=== PATIENT | male | born 1940 | race Caucasian/White ===

== ENCOUNTER 2017-11-10 17:26 | Inpatient (IN) ==
[2017-11-11] MEDS ORDERED: Albuterol 2.5 MG/3 ML NEBULIZER IH PRN (13:34)
[2017-11-11] MEDS ORDERED: Naloxone 0.4 MG/ML INJ IVP PRN (13:34)
[2017-11-11] MEDS ORDERED: Nitroglycerin 0.4 MG TAB.SUBL SL PRN (13:34)
[2017-11-11] MEDS: tiZANidine 4 MG TABLET PO SCH ×2 (14:57→19:39)
[2017-11-11] MEDS: Nystatin SUSP 5 ML UD.LIQ PO SCH ×2 (17:13→19:39)
[2017-11-11] MEDS: *HR* Warfarin 1 MG TABLET PO SCH (17:13)
[2017-11-11] MEDS: *HR* HYDROcodone/Acet 5/325 mg TABLET PO PRN (18:08)
[2017-11-11] MEDS: *HR* HYDROmorphone (PF) 1 MG/ML SYRINGE IVP PRN (19:38)
[2017-11-12] MEDS: Ascorbic Acid 500 MG TABLET PO SCH (06:01)
[2017-11-12] MEDS: Ondansetron 4 MG/2 ML VIAL IVP PRN ×2 (06:19→23:48)
[2017-11-12 06:31] LABS: Hematocrit 30.8 % (37.5-50.1); Hemoglobin 10.1 g/dL (12.9-16.9); Mean Corpuscular HGB Conc 32.8 g/dL (31.6-35.5); Mean Corpuscular Hemoglobin 27.7 pg (28.0-33.3); Mean Corpuscular Volume 84.4 fL (83.0-100.0); Mean Platelet Volume 10.2 fL (9.4-12.4); Platelet Count 253 K/mcL (140-400); Red Blood Count 3.65 M/mcL (4.19-5.50); Red Cell Distribution Width 15.4 % (11.5-14.5)
[2017-11-12 06:36] LABS: INR 1.6
[2017-11-12 06:39] LABS: Activated Partial Thrombo Time 30.5 Seconds (26.0-36.0)
[2017-11-12 06:45] LABS: BUN/Creatinine Ratio 17 (6-26); Blood Urea Nitrogen 11 mg/dL (8-26); Calcium 8.7 mg/dL (8.6-10.8); Carbon Dioxide 27 mEq/L (19-29); Chloride 104 mEq/L (98-109); Glucose 100 mg/dL (70-99); Osmolality,Calculated 287 (280-300); Potassium 3.4 mEq/L (3.5-4.5); Sodium 139 mEq/L (136-145); eGFR For African Americans > 60 (> 60); eGFR For Non-African Americans > 60 (> 60)
[2017-11-12 07:44] LABS: Monocytes # 0.5 K/mcL (0.0-1.3); Neutrophils # 5.9 K/mcL (1.6-8.9); Reactive Lymphocytes Present (Not Present)
[2017-11-12 07:48] LABS: Anisocytosis 1+ (Not Present); Platelet Estimate Normal (Normal)
[2017-11-12] MEDS: *HR* HYDROcodone/Acet 5/325 mg TABLET PO PRN ×3 (08:59→23:48)
[2017-11-12] MEDS: amLODIPine 5 MG TABLET PO SCH (09:00)
[2017-11-12] MEDS: Famotidine 20 MG TABLET PO SCH (09:00)
[2017-11-12] MEDS: Magnesium Oxide 400 MG TABLET PO SCH (09:00)
[2017-11-12] MEDS ORDERED: Leptospermum Honey GEL 1 APPL/5 ML MLS TP ONE (09:00)
[2017-11-12] MEDS: Nystatin SUSP 5 ML UD.LIQ PO SCH ×5 (09:00→20:02)
[2017-11-12] MEDS: tiZANidine 4 MG TABLET PO SCH ×3 (09:00→20:02)
--- NOTE | 2017-11-12 15:12 | Internal Med Progress Note ---
Date of Encounter: 11/12/17 Time of Encounter: 15:05 - Assessment and plan (1) Colitis Current Visit: No Status: Resolved Assessment and plan: November 12. Remains clinically resolved. Remain off antibiotics. (2) Anemia Current Visit: No Status: Acute Assessment and plan: November 12. Anemia testing showed iron 15, transferrin saturation 9%, transferrin 119, ferritin 338, B12 344, and folate 7.7. Continue ferrous sulfate with vitamin C. Qualifiers: Anemia type: iron deficiency Iron deficiency anemia type: unspecified iron deficiency Qualified Code(s): D50.9 - Iron deficiency anemia, unspecified (3) Pulmonary embolus Current Visit: No Status: Chronic Assessment and plan: November 12. 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 Continue magnesium supplement and monitor labs. - Subjective Interval history: November 12. He was hospitalized in acute care November 07 after presenting with acute colitis. He was given IV Flagyl and Cipro and colitis symptoms resolved. The WBC and left shift on differential normalized. He was discharged to swing bed for ongoing therapy prior to returning to independent living at home. He has no new complaints. - Constitutional Vitals: Temp Pulse Resp BP Pulse Ox 98.9 F 69 16 149/56 97 11/12/17 06:56 11/12/17 06:56 11/12/17 06:56 11/12/17 06:56 11/12/17 13:06 Exam: His resting comfortably in bed and appears in no acute distress. His affect is bright and cheerful. I reviewed his medications and lab results. Internal Medicine: Result - Labs CBC & Chem 7: 11/12/17 05:53 11/12/17 05:53 Labs: Short CBC 11/12/17 Range/Units 05:53 WBC 8.4 (4.3-11.1) K/mcL Hgb 10.1 L (12.9-16.9) g/dL Hct 30.8 L (37.5-50.1) % Plt Count 253 (140-400) K/mcL Neutrophils # 5.9 (1.6-8.9) K/mcL BMP 11/12/17 05:53 Sodium 139 Potassium 3.4 L Chloride 104 Carbon Dioxide 27 BUN 11 Creatinine 0.64 L Glucose 100 H Calcium 8.7 - ABG Interpretation ABG results: PT/INR, D-dimer PT 17.0 Seconds (9.4-12.1) H 11/12/17 05:53 Consult Discharge Plan - Plan Referrals: Sofi Johansen, RIGGING SUPERVISOR [Primary Care Provider] - 1 week
[2017-11-12] MEDS: *HR* Warfarin 1 MG TABLET PO SCH (17:38)
[2017-11-13] MEDS: *HR* HYDROmorphone (PF) 1 MG/ML SYRINGE IVP PRN (02:10)
[2017-11-13] MEDS: *HR* HYDROcodone/Acet 5/325 mg TABLET PO PRN ×3 (05:48→17:05)
[2017-11-13] MEDS: Ascorbic Acid 500 MG TABLET PO SCH (05:48)
[2017-11-13] MEDS: Famotidine 20 MG TABLET PO SCH (05:51)
[2017-11-13] MEDS: tiZANidine 4 MG TABLET PO SCH ×3 (08:16→20:47)
[2017-11-13] MEDS: amLODIPine 5 MG TABLET PO SCH (08:17)
[2017-11-13] MEDS: Nystatin SUSP 5 ML UD.LIQ PO SCH ×4 (08:17→17:13)
[2017-11-13] MEDS: Magnesium Oxide 400 MG TABLET PO SCH (08:17)
[2017-11-13] MEDS: Ondansetron 4 MG/2 ML VIAL IVP PRN (08:18)
[2017-11-13] MEDS: *HR* Warfarin 1 MG TABLET PO SCH (17:05)
[2017-11-14] MEDS: Ascorbic Acid 500 MG TABLET PO SCH (06:10)
[2017-11-14 06:37] LABS: Hemoglobin 9.6 g/dL (12.9-16.9); Mean Corpuscular Hemoglobin 27.4 pg (28.0-33.3); Mean Corpuscular Volume 85.7 fL (83.0-100.0); Mean Platelet Volume 10.4 fL (9.4-12.4); Platelet Count 239 K/mcL (140-400); Red Cell Distribution Width 16.1 % (11.5-14.5)
[2017-11-14 06:47] LABS: INR 1.3; Prothrombin Time 13.8 Seconds (9.4-12.1)
[2017-11-14 06:58] LABS: BUN/Creatinine Ratio 13 (6-26); Blood Urea Nitrogen 9 mg/dL (8-26); Calcium 8.7 mg/dL (8.6-10.8); Carbon Dioxide 29 mEq/L (19-29); Chloride 103 mEq/L (98-109); Glucose 87 mg/dL (70-99); Magnesium 1.4 mg/dL (1.6-2.6); Osmolality,Calculated 288 (280-300); Potassium 3.8 mEq/L (3.5-4.5); Sodium 140 mEq/L (136-145); eGFR For African Americans > 60 (> 60); eGFR For Non-African Americans > 60 (> 60)
[2017-11-14 07:30] LABS: Anisocytosis 1+ (Not Present); Eosinophils # 0.2 K/mcL (0.0-0.6); Lymphocytes # 1.7 K/mcL (0.6-4.6); Monocytes # 0.5 K/mcL (0.0-1.3); Neutrophils # 5.9 K/mcL (1.6-8.9)
[2017-11-14 07:34] LABS: Platelet Estimate Normal (Normal); Toxic Granulation Present (Not Present)
[2017-11-14] MEDS: Famotidine 20 MG TABLET PO SCH (08:31)
[2017-11-14] MEDS: tiZANidine 4 MG TABLET PO SCH ×3 (08:31→21:18)
[2017-11-14] MEDS: Magnesium Oxide 400 MG TABLET PO SCH ×2 (08:31→21:17)
[2017-11-14] MEDS: *HR* HYDROcodone/Acet 5/325 mg TABLET PO PRN ×2 (08:31→21:17)
[2017-11-14] MEDS: Fluconazole 100 MG TABLET PO SCH (08:32)
[2017-11-14] MEDS: amLODIPine 5 MG TABLET PO SCH (08:32)
[2017-11-14] MEDS: *HR* Warfarin 1 MG TABLET PO SCH (17:28)
--- NOTE | 2017-11-14 18:02 | Internal Med Progress Note ---
Date of Encounter: 11/14/17 Time of Encounter: 17:55 - Assessment and plan (1) Colitis Current Visit: No Status: Resolved Assessment and plan: November 12. Remains clinically resolved. Remain off antibiotics. (2) Anemia Current Visit: No Status: Acute Assessment and plan: November 12. Anemia testing showed iron 15, transferrin saturation 9%, transferrin 119, ferritin 338, B12 344, and folate 7.7. Continue ferrous sulfate with vitamin C. November 14. Hemoglobin decreased slightly to 9.6. Continue ferrous sulfate with vitamin C. Will change Pepcid to prn and continue to monitor CBC. Qualifiers: Anemia type: iron deficiency Iron deficiency anemia type: unspecified iron deficiency Qualified Code(s): D50.9 - Iron deficiency anemia, unspecified (3) Pulmonary embolus Current Visit: No Status: Chronic Assessment and plan: November 12. Continue Coumadin and monitor labs November 14. INR is subtherapeutic. Will increase Coumadin dose to 3 mg daily. Qualifiers: Pulmonary embolism type: saddle Chronicity: chronic Acute cor pulmonale presence: without acute cor pulmonale Qualified Code(s): I26.92 - Saddle embolus of pulmonary artery without acute cor pulmonale (4) Hypomagnesemia Current Visit: No Status: Acute Assessment and plan: November 12. Continue magnesium supplement and monitor labs. November 14. Magnesium level still low at 1.4. We will increase magnesium oxide to 400 mg twice a day. - Subjective Interval history: November 12. He was hospitalized in acute care November 07 after presenting with acute colitis. He was given IV Flagyl and Cipro and colitis symptoms resolved. The WBC and left shift on differential normalized. He was discharged to swing bed for ongoing therapy prior to returning to independent living at home. He has no new complaints. November 14. He has no new complaints except slight constipation. - Constitutional Vitals: Temp Pulse Resp BP Pulse Ox 98.1 F 72 15 132/68 97 11/14/17 06:36 11/14/17 06:36 11/14/17 10:44 11/14/17 06:36 11/14/17 10:44 Exam: He is resting comfortably in bed and appears in no acute distress. He is wearing JUDI hose. There is no edema of his legs palpated through the JUDI hose. Abdomen shows bowel sounds present and is nontender to light palpation. Heart is regular without murmurs gallops or ectopics. Lungs are clear anteriorly. I reviewed his medications and lab results. Internal Medicine: Result - Labs CBC & Chem 7: 11/14/17 05:35 11/14/17 05:35 Labs: Short CBC 11/14/17 Range/Units 05:35 WBC 8.4 (4.3-11.1) K/mcL Hgb 9.6 L (12.9-16.9) g/dL Hct 30.0 L (37.5-50.1) % Plt Count 239 (140-400) K/mcL Neutrophils # 5.9 (1.6-8.9) K/mcL BMP 11/14/17 05:35 Sodium 140 Potassium 3.8 Chloride 103 Carbon Dioxide 29 BUN 9 Creatinine 0.68 L Glucose 87 Calcium 8.7 - ABG Interpretation ABG results: PT/INR, D-dimer PT 13.8 Seconds (9.4-12.1) H 11/14/17 05:35 Consult Discharge Plan - Plan Referrals: Sofi Johansen, WATER PLUMBER [Primary Care Provider] - 1 week
[2017-11-14] MEDS ORDERED: Famotidine 20 MG TABLET PO PRN (18:07)
[2017-11-14] MEDS ORDERED: *HR* Warfarin 2 MG TABLET PO ONE (19:11)
[2017-11-14] MEDS: MOM Conc 10 ML UD.LIQ PO SCH (21:18)
[2017-11-15] MEDS: Ascorbic Acid 500 MG TABLET PO SCH (06:36)
[2017-11-15] MEDS: *HR* HYDROcodone/Acet 5/325 mg TABLET PO PRN ×3 (06:47→22:18)
[2017-11-15] MEDS ORDERED: 0.9 % Sodium Chloride 500 ML IVC ONE (06:53)
[2017-11-15] MEDS: Fluconazole 100 MG TABLET PO SCH (08:27)
[2017-11-15] MEDS: Magnesium Oxide 400 MG TABLET PO SCH ×2 (08:27→22:19)
[2017-11-15] MEDS: tiZANidine 4 MG TABLET PO SCH ×3 (08:27→22:19)
[2017-11-15] MEDS: amLODIPine 5 MG TABLET PO SCH (08:27)
[2017-11-15] MEDS: *HR* Warfarin 1 MG TABLET PO SCH (17:12)
[2017-11-16] MEDS: Ascorbic Acid 500 MG TABLET PO SCH (06:25)
[2017-11-16] MEDS: *HR* HYDROcodone/Acet 5/325 mg TABLET PO PRN ×2 (06:25→17:59)
[2017-11-16 07:42] LABS: INR 1.4; Prothrombin Time 15.5 Seconds (9.4-12.1)
[2017-11-16] MEDS: Magnesium Oxide 400 MG TABLET PO SCH ×2 (07:48→20:22)
[2017-11-16] MEDS: amLODIPine 5 MG TABLET PO SCH (07:48)
[2017-11-16] MEDS: Fluconazole 100 MG TABLET PO SCH (07:48)
[2017-11-16] MEDS: tiZANidine 4 MG TABLET PO SCH ×3 (07:48→20:22)
[2017-11-16] MEDS: *HR* Warfarin 1 MG TABLET PO SCH (17:59)
[2017-11-16] MEDS: MOM Conc 10 ML UD.LIQ PO SCH (18:05)
[2017-11-17] MEDS: *HR* HYDROcodone/Acet 5/325 mg TABLET PO PRN ×2 (03:01→18:29)
[2017-11-17] MEDS: Ascorbic Acid 500 MG TABLET PO SCH (05:36)
[2017-11-17 07:43] LABS: INR 1.8; Prothrombin Time 19.7 Seconds (9.4-12.1)
[2017-11-17] MEDS: tiZANidine 4 MG TABLET PO SCH ×2 (10:10→21:41)
[2017-11-17] MEDS: Magnesium Oxide 400 MG TABLET PO SCH ×2 (10:11→21:42)
--- NOTE | 2017-11-17 14:12 | Internal Med Progress Note ---
Date of Encounter: 11/17/17 Time of Encounter: 14:05 - Assessment and plan (1) Anemia Current Visit: No Status: Acute Assessment and plan: November 12. Anemia testing showed iron 15, transferrin saturation 9%, transferrin 119, ferritin 338, B12 344, and folate 7.7. Continue ferrous sulfate with vitamin C. November 14. Hemoglobin decreased slightly to 9.6. Continue ferrous sulfate with vitamin C. Will change Pepcid to prn and continue to monitor CBC. Qualifiers: Anemia type: iron deficiency Iron deficiency anemia type: unspecified iron deficiency Qualified Code(s): D50.9 - Iron deficiency anemia, unspecified (2) Pulmonary embolus Current Visit: No Status: Chronic Assessment and plan: November 12. Continue Coumadin and monitor labs November 14. INR is subtherapeutic. Will increase Coumadin dose to 3 mg daily. November 17. INR is 1.8. Continue present dose Coumadin and monitor labs. 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 Continue magnesium supplement and monitor labs. November 14. Magnesium level still low at 1.4. We will increase magnesium oxide to 400 mg twice a day. - Subjective Interval history: November 12. He was hospitalized in acute care November 07 after presenting with acute colitis. He was given IV Flagyl and Cipro and colitis symptoms resolved. The WBC and left shift on differential normalized. He was discharged to swing bed for ongoing therapy prior to returning to independent living at home. He has no new complaints. November 14. He has no new complaints except slight constipation. November 17. He has no new complaints. - Constitutional Vitals: Temp Pulse Resp BP Pulse Ox 98.8 F 64 18 136/65 99 11/17/17 06:40 11/17/17 06:40 11/17/17 06:40 11/17/17 06:40 11/17/17 06:40 Exam: He is resting comfortably in bed and appears in no acute distress. His daughter reports his stool has improved. I reviewed his medications and lab results. Internal Medicine: Result - Labs CBC & Chem 7: 11/14/17 05:35 11/14/17 05:35 - ABG Interpretation ABG results: PT/INR, D-dimer PT 19.7 Seconds (9.4-12.1) H 11/17/17 06:37 - VTE Documentation of Mechanical Device: Graduated compression elastic hosiery Consult Discharge Plan - Plan Referrals: Sofi Johansen, RECRUITMENT CONSULTANT [Primary Care Provider] - 1 week
[2017-11-17] MEDS: *HR* Warfarin 1 MG TABLET PO SCH (18:28)
[2017-11-17] MEDS: amLODIPine 5 MG TABLET PO SCH (21:42)
[2017-11-18] MEDS: Ascorbic Acid 500 MG TABLET PO SCH (05:30)
[2017-11-18] MEDS: *HR* HYDROcodone/Acet 5/325 mg TABLET PO PRN ×3 (05:40→18:02)
[2017-11-18] MEDS: Magnesium Oxide 400 MG TABLET PO SCH ×2 (10:22→21:19)
[2017-11-18] MEDS: tiZANidine 4 MG TABLET PO SCH ×2 (10:24→21:18)
[2017-11-18] MEDS: *HR* Warfarin 1 MG TABLET PO SCH (18:01)
[2017-11-18] MEDS: MOM Conc 10 ML UD.LIQ PO SCH (19:30)
[2017-11-18] MEDS: amLODIPine 5 MG TABLET PO SCH (21:19)
[2017-11-19 04:48] LABS: Basophils % 0.3 %; Eosinophils # 0.3 K/mcL (0.0-0.6); Eosinophils % 4.2 %; Hematocrit 27.3 % (37.5-50.1); Hemoglobin 8.9 g/dL (12.9-16.9); Immature Granulocytes % 0.2 % (0-4); Lymphocytes # 3.1 K/mcL (0.6-4.6); Lymphocytes % 47.3 %; Mean Corpuscular HGB Conc 32.6 g/dL (31.6-35.5); Mean Corpuscular Hemoglobin 27.9 pg (28.0-33.3); Mean Corpuscular Volume 85.6 fL (83.0-100.0); Mean Platelet Volume 10.5 fL (9.4-12.4); Monocytes # 0.5 K/mcL (0.0-1.3); Neutrophils # 2.6 K/mcL (1.6-8.9); Platelet Count 236 K/mcL (140-400); Red Blood Count 3.19 M/mcL (4.19-5.50); Red Cell Distribution Width 16.6 % (11.5-14.5)
[2017-11-19 05:08] LABS: BUN/Creatinine Ratio 17 (6-26); Blood Urea Nitrogen 11 mg/dL (8-23); Calcium 8.3 mg/dL (8.6-10.3); Carbon Dioxide 30 mEq/L (23-29); Chloride 103 mEq/L (98-107); Glucose 92 mg/dL (70-105); Magnesium 1.7 mg/dL (1.6-2.6); Osmolality,Calculated 287 (280-300); Potassium 3.6 mEq/L (3.5-5.1); Sodium 139 mEq/L (136-145); eGFR For African Americans > 60 (> 60); eGFR For Non-African Americans > 60 (> 60)
[2017-11-19] MEDS: Ascorbic Acid 500 MG TABLET PO SCH (06:41)
[2017-11-19] MEDS: *HR* HYDROcodone/Acet 5/325 mg TABLET PO PRN ×3 (08:20→17:56)
[2017-11-19] MEDS: Magnesium Oxide 400 MG TABLET PO SCH ×2 (08:20→21:43)
[2017-11-19] MEDS: tiZANidine 4 MG TABLET PO SCH ×2 (08:20→21:43)
[2017-11-19] MEDS: Mag Hydrox/Al Hydrox/Simeth 30 ML UDC PO PRN (08:21)
[2017-11-19] MEDS: *HR* Warfarin 1 MG TABLET PO SCH (17:18)
[2017-11-19] MEDS: amLODIPine 5 MG TABLET PO SCH (21:43)
[2017-11-20] MEDS: *HR* HYDROcodone/Acet 5/325 mg TABLET PO PRN ×4 (00:05→21:10)
[2017-11-20] MEDS: Mag Hydrox/Al Hydrox/Simeth 30 ML UDC PO PRN (05:36)
[2017-11-20] MEDS: Ascorbic Acid 500 MG TABLET PO SCH (05:56)
[2017-11-20 06:07] LABS: Basophils % 0.6 %; Eosinophils # 0.3 K/mcL (0.0-0.6); Eosinophils % 3.8 %; Hematocrit 30.1 % (37.5-50.1); Hemoglobin 9.9 g/dL (12.9-16.9); Immature Granulocytes % 0.2 % (0-4); Lymphocytes # 2.8 K/mcL (0.6-4.6); Lymphocytes % 42.6 %; Mean Corpuscular HGB Conc 32.9 g/dL (31.6-35.5); Mean Corpuscular Hemoglobin 28.1 pg (28.0-33.3); Mean Corpuscular Volume 85.5 fL (83.0-100.0); Mean Platelet Volume 10.2 fL (9.4-12.4); Monocytes # 0.5 K/mcL (0.0-1.3); Monocytes % 8.1 %; Neutrophils # 2.9 K/mcL (1.6-8.9); Platelet Count 273 K/mcL (140-400); Red Blood Count 3.52 M/mcL (4.19-5.50); Red Cell Distribution Width 16.5 % (11.5-14.5); Segmented Neutrophils % 44.7 %
[2017-11-20 06:18] LABS: BUN/Creatinine Ratio 17 (6-26); Blood Urea Nitrogen 10 mg/dL (8-23); Calcium 8.6 mg/dL (8.6-10.3); Carbon Dioxide 31 mEq/L (23-29); Chloride 102 mEq/L (98-107); Glucose 100 mg/dL (70-105); Magnesium 1.8 mg/dL (1.6-2.6); Osmolality,Calculated 285 (280-300); Potassium 3.7 mEq/L (3.5-5.1); Sodium 138 mEq/L (136-145); eGFR For African Americans > 60 (> 60); eGFR For Non-African Americans > 60 (> 60)
[2017-11-20] MEDS: tiZANidine 4 MG TABLET PO SCH ×2 (08:31→21:15)
[2017-11-20] MEDS: Magnesium Oxide 400 MG TABLET PO SCH ×2 (08:31→21:14)
[2017-11-20] MEDS: ALPRAZolam 0.5 MG TABLET PO PRN (21:12)
[2017-11-20] MEDS: *HR* Warfarin 1 MG TABLET PO SCH (21:12)
[2017-11-20] MEDS: amLODIPine 5 MG TABLET PO SCH (21:13)
[2017-11-20] MEDS: MOM Conc 10 ML UD.LIQ PO SCH (21:15)
[2017-11-21] MEDS: Ascorbic Acid 500 MG TABLET PO SCH (06:04)
[2017-11-21] MEDS: *HR* HYDROcodone/Acet 5/325 mg TABLET PO PRN ×2 (06:04→16:51)
[2017-11-21] MEDS: Magnesium Oxide 400 MG TABLET PO SCH ×2 (08:54→20:21)
[2017-11-21] MEDS: tiZANidine 4 MG TABLET PO SCH ×2 (08:55→20:22)
--- NOTE | 2017-11-21 17:07 | Internal Med Progress Note ---
Date of Encounter: 11/21/17 Time of Encounter: 17:00 - Assessment and plan (1) Anemia Current Visit: No Status: Acute Assessment and plan: November 12. Anemia testing showed iron 15, transferrin saturation 9%, transferrin 119, ferritin 338, B12 344, and folate 7.7. Continue ferrous sulfate with vitamin C. November 14. Hemoglobin decreased slightly to 9.6. Continue ferrous sulfate with vitamin C. Will change Pepcid to prn and continue to monitor CBC. November 21. Hemoglobin increased to 9.9. Continue present regimen. Qualifiers: Anemia type: iron deficiency Iron deficiency anemia type: unspecified iron deficiency Qualified Code(s): D50.9 - Iron deficiency anemia, unspecified (2) Pulmonary embolus Current Visit: No Status: Chronic Assessment and plan: November 12. Continue Coumadin and monitor labs November 14. INR is subtherapeutic. Will increase Coumadin dose to 3 mg daily. November 17. INR is 1.8. Continue present dose Coumadin and monitor labs. November 21. Will check PT INR with other labs in a.m. 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 Continue magnesium supplement and monitor labs. November 14. Magnesium level still low at 1.4. We will increase magnesium oxide to 400 mg twice a day. November 21. We will check labs in a.m. - Subjective Interval history: November 12. He was hospitalized in acute care November 07 after presenting with acute colitis. He was given IV Flagyl and Cipro and colitis symptoms resolved. The WBC and left shift on differential normalized. He was discharged to swing bed for ongoing therapy prior to returning to independent living at home. He has no new complaints. November 14. He has no new complaints except slight constipation. November 17. He has no new complaints. November 21. He has no new complaints and feels well. - Constitutional Vitals: Temp Pulse Resp BP Pulse Ox 98.5 F 83 16 137/64 93 11/21/17 14:30 11/21/17 16:49 11/21/17 14:30 11/21/17 16:49 11/21/17 16:49 Exam: He is resting comfortably in bed and appears in no acute distress. He is not using oxygen at this time. Answers questions briefly but appropriately. I reviewed his medications and lab results. Internal Medicine: Result - Labs CBC & Chem 7: 11/20/17 05:24 11/20/17 05:24 - ABG Interpretation ABG results: PT/INR, D-dimer PT 19.7 Seconds (9.4-12.1) H 11/17/17 06:37 - VTE Documentation of Mechanical Device: Graduated compression elastic hosiery Consult Discharge Plan - Plan Referrals: Sofi Johansen, [employer] [Primary Care Provider] - 1 week
[2017-11-21] MEDS: *HR* Warfarin 1 MG TABLET PO SCH (17:11)
[2017-11-21] MEDS: Finasteride 5 MG TABLET PO SCH (18:02)
[2017-11-21] MEDS: amLODIPine 5 MG TABLET PO SCH (20:22)
[2017-11-22] MEDS: *HR* HYDROcodone/Acet 5/325 mg TABLET PO PRN ×2 (03:28→16:57)
[2017-11-22 05:52] LABS: Basophils % 0.3 %; Eosinophils # 0.2 K/mcL (0.0-0.6); Eosinophils % 3.2 %; Hematocrit 29.4 % (37.5-50.1); Hemoglobin 9.6 g/dL (12.9-16.9); Immature Granulocytes % 0.1 % (0-4); Lymphocytes # 2.6 K/mcL (0.6-4.6); Lymphocytes % 37.8 %; Mean Corpuscular HGB Conc 32.7 g/dL (31.6-35.5); Mean Corpuscular Hemoglobin 27.9 pg (28.0-33.3); Mean Corpuscular Volume 85.5 fL (83.0-100.0); Mean Platelet Volume 10.2 fL (9.4-12.4); Monocytes # 0.8 K/mcL (0.0-1.3); Monocytes % 11.8 %; Neutrophils # 3.2 K/mcL (1.6-8.9); Platelet Count 287 K/mcL (140-400); Red Blood Count 3.44 M/mcL (4.19-5.50); Red Cell Distribution Width 16.5 % (11.5-14.5); Segmented Neutrophils % 46.8 %
[2017-11-22 06:09] LABS: Prothrombin Time 95.4 Seconds (9.4-12.1)
[2017-11-22 06:11] LABS: BUN/Creatinine Ratio 24 (6-26); Blood Urea Nitrogen 17 mg/dL (8-23); Calcium 8.7 mg/dL (8.6-10.3); Carbon Dioxide 29 mEq/L (23-29); Chloride 101 mEq/L (98-107); Glucose 101 mg/dL (70-105); INR 8.5; Magnesium 1.8 mg/dL (1.6-2.6); Osmolality,Calculated 284 (280-300); Potassium 3.8 mEq/L (3.5-5.1); Sodium 136 mEq/L (136-145); eGFR For African Americans > 60 (> 60); eGFR For Non-African Americans > 60 (> 60)
[2017-11-22] MEDS ORDERED: *HR* Phytonadione 10 MG/ML AMPUL SQ ONE (06:17)
[2017-11-22] MEDS: Ascorbic Acid 500 MG TABLET PO SCH (07:12)
[2017-11-22] MEDS: Finasteride 5 MG TABLET PO SCH (09:10)
[2017-11-22] MEDS: tiZANidine 4 MG TABLET PO SCH ×2 (09:10→19:39)
[2017-11-22] MEDS: Magnesium Oxide 400 MG TABLET PO SCH ×2 (09:11→19:39)
[2017-11-22] MEDS: MOM Conc 10 ML UD.LIQ PO SCH (16:54)
[2017-11-22] MEDS: amLODIPine 5 MG TABLET PO SCH (19:39)
[2017-11-22] MEDS: ALPRAZolam 0.5 MG TABLET PO PRN (19:48)
[2017-11-23] MEDS: Ascorbic Acid 500 MG TABLET PO SCH (05:41)
[2017-11-23] MEDS: *HR* HYDROcodone/Acet 5/325 mg TABLET PO PRN ×2 (05:42→12:07)
[2017-11-23] MEDS: Finasteride 5 MG TABLET PO SCH (10:31)
[2017-11-23] MEDS: tiZANidine 4 MG TABLET PO SCH ×2 (10:31→20:24)
[2017-11-23] MEDS: Magnesium Oxide 400 MG TABLET PO SCH ×2 (10:31→20:24)
[2017-11-23] MEDS: Ondansetron ODT 4 MG TAB.RAPDIS SL PRN (13:25)
[2017-11-23] MEDS: *HR* Warfarin 1 MG TABLET PO SCH (18:12)
[2017-11-23] MEDS: ALPRAZolam 0.5 MG TABLET PO PRN (20:24)
[2017-11-23] MEDS: amLODIPine 5 MG TABLET PO SCH (20:24)
[2017-11-24] MEDS: *HR* HYDROcodone/Acet 5/325 mg TABLET PO PRN ×3 (05:41→22:19)
[2017-11-24] MEDS: Ascorbic Acid 500 MG TABLET PO SCH (05:41)
[2017-11-24 06:08] LABS: Basophils % 0.4 %; Eosinophils # 0.2 K/mcL (0.0-0.6); Eosinophils % 4.2 %; Hematocrit 29.2 % (37.5-50.1); Hemoglobin 9.4 g/dL (12.9-16.9); Immature Granulocytes % 0.2 % (0-4); Lymphocytes # 2.8 K/mcL (0.6-4.6); Lymphocytes % 50.1 %; Mean Corpuscular HGB Conc 32.2 g/dL (31.6-35.5); Mean Corpuscular Hemoglobin 27.3 pg (28.0-33.3); Mean Corpuscular Volume 84.9 fL (83.0-100.0); Mean Platelet Volume 10.4 fL (9.4-12.4); Monocytes # 0.6 K/mcL (0.0-1.3); Monocytes % 10.9 %; Neutrophils # 1.9 K/mcL (1.6-8.9); Platelet Count 259 K/mcL (140-400); Red Blood Count 3.44 M/mcL (4.19-5.50); Red Cell Distribution Width 16.2 % (11.5-14.5); Segmented Neutrophils % 34.2 %
[2017-11-24 06:14] LABS: INR 2.9; Prothrombin Time 31.4 Seconds (9.4-12.1)
[2017-11-24] MEDS: Finasteride 5 MG TABLET PO SCH (08:38)
[2017-11-24] MEDS: tiZANidine 4 MG TABLET PO SCH ×2 (08:38→20:11)
[2017-11-24] MEDS: Magnesium Oxide 400 MG TABLET PO SCH ×2 (08:38→20:11)
--- NOTE | 2017-11-24 11:45 | Discharge Summary ---
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 (3) Hypomagnesemia Priority: Secondary Status: Acute (4) Urinary retention Priority: Secondary Status: Acute - Discharge Medications Prescriptions: Ascorbic Acid [Vitamin C] 500 mg PO DAILY@0630 #30 tablet Ferrous Sulfate 325 mg PO DAILY@0630 #30 tablet Finasteride [Proscar] 5 mg PO DAILY #30 tablet Magnesium Oxide [Mag-Ox] 400 mg PO BID #14 tablet Home Medications: Albuterol Sulfate [Albuterol Inhaler] 2 puff IH QID PRN 09/25/17 [History] Aspirin [Lo-Dose Aspirin EC] 81 mg PO DAILY 09/25/17 [History] Carvedilol [Coreg] 25 mg PO BID 09/25/17 [History] Clopidogrel [Plavix] 75 mg PO DAILY 09/25/17 [History] Docusate [Colace] 100 mg PO DAILY 09/25/17 [History] Nitroglycerin [Nitrostat] 0.4 mg SL DAILY PRN 09/25/17 [History] Ondansetron HCl [Zofran] 4 mg PO BID PRN 09/25/17 [History] Tramadol HCl [Ultram] 50 mg PO QID PRN #16 tab 10/09/17 [Rx] Tizanidine HCl [Zanaflex] 2 mg PO BID 10/12/17 [History] Ranitidine HCl [Zantac] 150 mg PO BID 11/07/17 [History] Warfarin [Coumadin] 1 mg PO DAILY 11/07/17 [History] amLODIPine [Norvasc] 5 mg PO HS 11/07/17 [History] Albuterol Neb [Proventil Neb] 2.5 mg IH [id number] PRN inhsol 11/11/17 [Rx] Ascorbic Acid [Vitamin C] 500 mg PO DAILY@0630 tablet 11/11/17 [Rx] Ferrous Sulfate 325 mg PO DAILY@0630 tablet 11/11/17 [Rx] Magnesium Oxide [Mag-Ox] 400 mg PO BID tablet 11/11/17 [Rx] Ascorbic Acid [Vitamin C] 500 mg PO DAILY@0630 #30 tablet 11/24/17 [Rx] Ferrous Sulfate 325 mg PO DAILY@0630 #30 tablet 11/24/17 [Rx] Finasteride [Proscar] 5 mg PO DAILY #30 tablet 11/24/17 [Rx] Magnesium Oxide [Mag-Ox] 400 mg PO BID #14 tablet 11/24/17 [Rx] Tamsulosin [Flomax] 0.8 mg PO DAILY #60 11/24/17 [Rx] Allergies/Adverse Reactions: 3 Allergy/AdvReac Type Severity Reaction Status Date / Time cinnamon Allergy Anaphylaxis Verified 11/10/17 16:51 Erythromycin Base Allergy Hives Verified 11/07/17 03:27 [From Erythrocin] ibuprofen [From Motrin] Allergy Nausea Verified 11/07/17 03:27 naproxen [From Aleve] Allergy See Verified 11/07/17 03:27 Comments Oxytetracycline Allergy See Verified 11/07/17 03:27 [From Terramycin] Comments [place] Allergy Anaphylaxis Verified 11/10/17 16:51 Date of admission: 11/11/17 12:59 Primary care physician: Sofi Johansen CNP Consults: 11/11/17 13:29 Consult to Occupational Therapy [CONS] Routine Comment: swing Reason for Consult: evaluate, develop, and implement plan of care Consult to Physical Therapy [CONS] Routine Comment: swing Reason for Consult: evaluate, develop, and implement plan of care Consult to Cost Engineer [CONS] Routine Reason for SW Consult: discharge planning 11/11/17 15:32 Consult to Cost Engineer [CONS] Routine Reason for SW Consult: discharge planning - Patient Status Disposition: Home Health Service Overall status at discharge: patient is progressing back to baseline - Discharge Instructions Follow Up With: Sofi Johansen CNP [Primary Care Provider] - 1 week - Diet and Activity Activity: as per physical therapy, resume usual activities as tolerated Diet: advance to your usual diet Hospital course: Mr. Jackson is a 77 year old male who was hospitalized in acute care November 07 after presenting with acute colitis. He was given IV Flagyl and Cipro and colitis symptoms resolved. The WBC and left shift on differential normalized. He was discharged to swing bed for ongoing therapy prior to returning to independent living at home. He continued with therapy interventions in swing bed. He had no further evidence of colitis. He was started on ferrous sulfate with vitamin C after anemia testing showed iron 15, transferrin saturation 9%, transferrin 119, ferritin 338, B12 344, folate 7.7. He will continue with ferrous sulfate and vitamin C at discharge. Magnesium level returned low at 1.4 on 11/14/2017. He was started on magnesium oxide and his level normalized. He will continue with magnesium oxide for 7 additional days after discharge. His PCP can monitor this. He will be discharged home 11/25/2017 and follow with his PCP within one week. - Time Spent with Patient Total time spent providing and/or coordinating discharge services: - Constitutional Vitals: Temp Pulse Resp BP Pulse Ox 98.1 F 66 18 128/54 97 11/24/17 06:47 11/24/17 06:47 11/24/17 06:47 11/24/17 06:47 11/24/17 06:47 - VTE Documentation of Mechanical Device: Graduated compression elastic hosiery
--- NOTE | 2017-11-24 11:55 | Physician Discharge Referral ---
Home Health/Hosp Referral Info Transfer to: Home Health Attending Provider: Ren Provider in Charge Post Discharge: PCP (Sofi Johansen CNP) - Diagnosis (1) Anemia Priority: Primary Status: Acute (2) Pulmonary embolus Priority: Secondary Status: Chronic (3) Hypomagnesemia Priority: Secondary Status: Acute (4) Urinary retention Priority: Secondary Status: Acute - Respiratory Orders Oxygen / L per min (2 L/min nasal cannula to keep sat greater than 90%) Smoking Cessation: Smoking cessation has been advised. For more information, call the [place] Tobacco Quit Line at 0-383-YHYU-NOW. - Diet/Nutrition Diet/Nutrition Orders: Cardiac - Services Needed Following services are medically necessary services: Nursing, Home Health Aide, Physical Therapy, Occupational Therapy - Transfer Medications Prescriptions: Ascorbic Acid [Vitamin C] 500 mg PO DAILY@0630 #30 tablet Ferrous Sulfate 325 mg PO DAILY@0630 #30 tablet Finasteride [Proscar] 5 mg PO DAILY #30 tablet Magnesium Oxide [Mag-Ox] 400 mg PO BID #14 tablet Home Medications: Albuterol Sulfate [Albuterol Inhaler] 2 puff IH QID PRN 09/25/17 [History] Aspirin [Lo-Dose Aspirin EC] 81 mg PO DAILY 09/25/17 [History] Carvedilol [Coreg] 25 mg PO BID 09/25/17 [History] Clopidogrel [Plavix] 75 mg PO DAILY 09/25/17 [History] Docusate [Colace] 100 mg PO DAILY 09/25/17 [History] Nitroglycerin [Nitrostat] 0.4 mg SL DAILY PRN 09/25/17 [History] Ondansetron HCl [Zofran] 4 mg PO BID PRN 09/25/17 [History] Tramadol HCl [Ultram] 50 mg PO QID PRN #16 tab 10/09/17 [Rx] Tizanidine HCl [Zanaflex] 2 mg PO BID 10/12/17 [History] Ranitidine HCl [Zantac] 150 mg PO BID 11/07/17 [History] Warfarin [Coumadin] 1 mg PO DAILY 11/07/17 [History] amLODIPine [Norvasc] 5 mg PO HS 11/07/17 [History] Albuterol Neb [Proventil Neb] 2.5 mg IH [id number] PRN inhsol 11/11/17 [Rx] Ascorbic Acid [Vitamin C] 500 mg PO DAILY@0630 tablet 11/11/17 [Rx] Ferrous Sulfate 325 mg PO DAILY@0630 tablet 11/11/17 [Rx] Magnesium Oxide [Mag-Ox] 400 mg PO BID tablet 11/11/17 [Rx] Ascorbic Acid [Vitamin C] 500 mg PO DAILY@0630 #30 tablet 11/24/17 [Rx] Ferrous Sulfate 325 mg PO DAILY@0630 #30 tablet 11/24/17 [Rx] Finasteride [Proscar] 5 mg PO DAILY #30 tablet 11/24/17 [Rx] Magnesium Oxide [Mag-Ox] 400 mg PO BID #14 tablet 11/24/17 [Rx] Tamsulosin [Flomax] 0.8 mg PO DAILY #60 11/24/17 [Rx] Allergies/Adverse Reactions: 3 Allergy/AdvReac Type Severity Reaction Status Date / Time cinnamon Allergy Anaphylaxis Verified 11/10/17 16:51 Erythromycin Base Allergy Hives Verified 11/07/17 03:27 [From Erythrocin] ibuprofen [From Motrin] Allergy Nausea Verified 11/07/17 03:27 naproxen [From Aleve] Allergy See Verified 11/07/17 03:27 Comments Oxytetracycline Allergy See Verified 11/07/17 03:27 [From Terramycin] Comments [place] Allergy Anaphylaxis Verified 11/10/17 16:51 Certification: Further, I certify that my clinical findings support that this patient is homebound (i.e. absences from home require considerable and taxing effort and are for medical reasons or anabaptist services or infrequently or short duration when for other reasons) because: Homebound Reason: Leaving home requires considerable and taxing effort due to condition (Blindness, ASHD, anemia) Attestation: My signature below is to certify that this patient is under my care and that I, or nurse practitioner, or a physician's assistant clinical director working with me, has a face-to -face encounter with this patient.
[2017-11-24] MEDS: MOM Conc 10 ML UD.LIQ PO SCH (17:24)
[2017-11-24] MEDS ORDERED: *HR* Warfarin 3 MG TABLET PO SCH (18:00)
[2017-11-24] MEDS: amLODIPine 5 MG TABLET PO SCH (20:11)
[2017-11-24] MEDS: ALPRAZolam 0.5 MG TABLET PO PRN (22:19)
[2017-11-25] MEDS: *HR* HYDROcodone/Acet 5/325 mg TABLET PO PRN ×2 (03:35→09:23)
[2017-11-25] MEDS: Ascorbic Acid 500 MG TABLET PO SCH (05:38)
[2017-11-25 06:47] VITALS: BP 110/51
[2017-11-25] MEDS: Magnesium Oxide 400 MG TABLET PO SCH (08:59)
[2017-11-25] MEDS: tiZANidine 4 MG TABLET PO SCH (09:00)
[2017-11-25] MEDS: Finasteride 5 MG TABLET PO SCH (09:00)
[2017-11-25] MEDS: Ondansetron ODT 4 MG TAB.RAPDIS SL PRN (10:16)
== END 2017-11-25 11:35 | disposition home health service (06) | DRG 945 ==
LOC: INPPIK 11-11 12:59
PROVIDERS: ADMIT Internal Medicine; ATTEND Internal Medicine

== ENCOUNTER 2018-01-10 18:37 | Observation (INO) ==
--- NOTE | 2018-01-10 18:44 | Emergency Department Note ---
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 He says he could talk to his family what was happening was telling them was going to . The family says his eyes rolled back in his head and he began to shake all over. He never had a seizure before that he is aware and he has no complaints at this time. There has been no fevers chills nausea vomiting night sweats shortness of breath belly pain diarrhea or other complaints Pt Subjective Complaint: seizure Onset (ago): Just [employer] Description of Episode: loss of consciousness, other (generalized tremors) -: minutes(s) Witnessed: yes - by EMS, yes - by other (family) Seizure History: none Place: home Associated symptoms: Reports: denies other symptoms Treatments prior to arrival: none - Related Data Home Medications Medication Instructions Recorded Confirmed Albuterol Sulfate [Albuterol 2 puff IH QID PRN 09/25/17 01/10/18 Inhaler] Aspirin [Lo-Dose Aspirin EC] 81 mg PO DAILY 09/25/17 01/10/18 Carvedilol [Coreg] 25 mg PO BID 09/25/17 01/10/18 Clopidogrel [Plavix] 75 mg PO DAILY 09/25/17 01/10/18 Docusate [Colace] 100 mg PO DAILY 09/25/17 01/10/18 Nitroglycerin [Nitrostat] 0.4 mg SL DAILY PRN 09/25/17 01/10/18 Ondansetron HCl [Zofran] 4 mg PO BID PRN 09/25/17 01/10/18 Tizanidine HCl [Zanaflex] 2 mg PO BID 10/12/17 01/10/18 Ranitidine HCl [Zantac] 150 mg PO BID 11/07/17 01/10/18 Warfarin [Coumadin] 1 mg PO DAILY 11/07/17 01/10/18 amLODIPine [Norvasc] 5 mg PO HS 11/07/17 01/10/18 Buspirone HCl [Buspar] 5 mg PO BID 01/10/18 01/10/18 Previous Rx's Medication Instructions Recorded Albuterol Neb [Proventil Neb] 2.5 mg IH [id number] PRN inhsol 11/11/17 Ascorbic Acid [Vitamin C] 500 mg PO DAILY@0630 tablet 11/11/17 Ferrous Sulfate 325 mg PO DAILY@0630 tablet 11/11/17 Tamsulosin [Flomax] 0.8 mg PO DAILY #60 11/24/17 Allergies Allergy/AdvReac Type Severity Reaction Status Date / Time cinnamon Allergy Anaphylaxis Verified 11/10/17 16:51 Erythromycin Base Allergy Hives Verified 11/07/17 03:27 [From Erythrocin] ibuprofen [From Motrin] Allergy Nausea Verified 11/07/17 03:27 naproxen [From Aleve] Allergy See Verified 11/07/17 03:27 Comments Oxytetracycline Allergy See Verified 11/07/17 03:27 [From Terramycin] Comments [place] Allergy Anaphylaxis Verified 11/10/17 16:51 All systems ED: reviewed and negative except as stated. Review of Systems: As Per HPI Constitutional: Denies: fever, chills, weakness, weight change Eyes: Reports: as per HPI ENT ED: Denies: ear pain, throat pain, dental pain, hearing loss, epistaxis, congestion, dysphagia Cardiovascular: Denies: chest pain, palpitations, dyspnea on exertion, edema, syncope Respiratory: Reports: as per HPI Gastrointestinal: Denies: abdominal pain, nausea, vomiting, diarrhea, constipation, hematemesis, melena, hematochezia Genitourinary: Denies: urgency, dysuria, frequency, hematuria Musculoskeletal: Denies: back pain, neck pain, arthralgia, myalgia Integumentary: Denies: rash, abrasion, lesions Neurological: Reports: as per HPI (seizure, prior CVA with Left sided deficits) Psychiatric: Denies: anxiety, depression, suicidal thoughts, homicidal thoughts , auditory hallucinations, visual hallucinations Endocrine: Denies: fatigue Hematological/Lymphatic: Denies: easy bleeding, easy bruising Allergic/Immunologic: Denies: facial swelling, urticaria Past Medical History - Past Medical History Attestation: Yes The following information was validated with the patient. Source: patient Medical history: Reports: CHF, COPD, coronary artery disease, CVA, hyperlipidemia, hypertension, myocardial infarction Surgical history: Reports: angioplasty/stent, coronary bypass (CABG), vascular surgery, other Psychiatric history: Reports: no psych history - Social History Smoking Status: Never smoker Smokeless Tobacco Status: No Alcohol use: Reports: none Drug use: Reports: none Physical Exam - General Limitations: no limitations General appearance: alert, in no apparent distress - Head Head exam: atraumatic, normocephalic, normal inspection - Eye Eye exam: Present: normal appearance, PERRL, EOMI - ENT ENT exam: normal exam, normal oropharynx, mucous membranes moist - Neck Neck exam: Present: normal inspection, full ROM, trachea midline - Chest Chest inspection: Present: normal inspection, symmetric chest wall rise - Respiratory Respiratory exam: Present: normal lung sounds bilaterally - Cardiovascular Cardiovascular exam: Present: regular rate, normal rhythm, normal heart sounds - Abdominal Exam Abdominal exam: Present: soft, Non-Tender. Absent: tenderness, distention, guarding, rebound, rigidity - Extremities Exam Extremities exam: Present: normal inspection - Back Exam Back exam: Present: normal inspection - Neurological Exam Neurological exam: Present: alert, oriented X3 - Psychiatric Psychiatric exam: Present: normal affect, normal mood - Skin Skin exam: Present: warm, dry, intact Course Vital Signs Temperature 97.4 F L 01/10/18 18:41 Pulse Rate 87 01/10/18 18:41 Respiratory Rate 18 01/10/18 18:41 Blood Pressure 157/68 01/10/18 18:41 O2 Sat by Pulse Oximetry 99 01/10/18 18:41 Temperature 97.4 F L 01/10/18 18:41 Pulse Rate 88 01/10/18 21:27 Respiratory Rate 16 01/10/18 21:27 Blood Pressure 156/59 01/10/18 21:27 O2 Sat by Pulse Oximetry 99 01/10/18 21:27 Oxygen Delivery Oxygen Delivery Nasal Cannula Seizure - MDM Narrative Medical decision making narrative: Case was discussed with Dr. Mcclure who accepts admission - Lab Data Result diagrams: 01/10/18 19:00 01/10/18 19:00 Lab Results 01/10/18 01/10/18 01/10/18 Range/Units 19:00 19:00 19:30 WBC 11.5 H (4.3-11.1) K/mcL RBC 4.11 L (4.19-5.50) M/mcL Hgb 11.7 L (12.9-16.9) g/dL Hct 36.2 L (37.5-50.1) % MCV 88.1 (83.0-100.0) fL MCH 28.5 (28.0-33.3) pg MCHC 32.3 (31.6-35.5) g/dL RDW 16.2 H (11.5-14.5) % Plt Count 270 (140-400) K/mcL MPV 9.9 (9.4-12.4) fL Immature Gran % 0.2 (0-4) % Seg Neutrophils % 54.1 % Lymphocytes % 37.9 % Monocytes % 4.4 % Eosinophils % 3.1 % Basophils % 0.3 % Neutrophils # 6.2 (1.6-8.9) K/mcL Lymphocytes # 4.4 (0.6-4.6) K/mcL Monocytes # 0.5 (0.0-1.3) K/mcL Eosinophils # 0.4 (0.0-0.6) K/mcL Basophils # 0.0 (0.0-0.2) K/mcL Sodium 138 (136-145) mEq/L Potassium 4.1 (3.5-5.1) mEq/L Chloride 103 (98-107) mEq/L Carbon Dioxide 25 (23-29) mEq/L BUN 17 (8-23) mg/dL Creatinine 0.77 (0.70-1.30) mg/dL Est GFR ( Amer) > 60 (> 60) Est GFR (Non-Af Amer) > 60 (> 60) BUN/Creatinine Ratio 22 (6-26) Glucose 160 H (70-105) mg/dL Calculated Osmolality 291 (280-300) Calcium 9.7 (8.6-10.3) mg/dL Total Bilirubin 0.4 (0.3-1.0) mg/dL AST 20 (13-39) Units/L ALT 18 (7-52) Units/L Alkaline Phosphatase 76 (34-104) Units/L Troponin I < 0.03 (< 0.04) ng/mL Serum Total Protein 6.6 (6.4-8.9) g/dL Albumin 3.2 L (3.5-5.7) g/dL Globulin 3.4 (2.4-3.5) g/dL Albumin/Globulin Ratio 0.9 L (1.1-2.2) Urine Color Yellow (Yellow) Urine Clarity Clear (Clear) Urine pH 5.0 (5.0-8.0) pH Units Ur Specific [place] 1.025 (1.010-1.025) Urine Protein Trace (Neg-Trace) mg/dL Urine Glucose (UA) Normal (Normal) mg/dL Urine Ketones Negative (Negative) mg/dL Urine Blood Negative (Negative) Urine Nitrite Positive A (Negative) Urine Bilirubin Negative (Negative) Urine Urobilinogen Normal (Normal) mg/dL Ur Leukocyte Esterase Small H (Negative) Urine Microscopic WBC 5-15 H (0-3) per hpf Urine Bacteria Many H (None-Few) per hpf Ur Culture Indicated? YES A (NO) - EKG Data EKG attestation: Yes I reviewed and interpreted this EKG. EKG results narrative: EKG shows a sinus rhythm with nonspecific T abnormalities by my read with a rate of 85 bpm. TN interval of 147 ms QRS duration 100 ms QT and QTC intervals of 369 and 411 ms. R axis of 26 degrees
[2018-01-10 19:05] LABS: Basophils % 0.3 %; Eosinophils # 0.4 K/mcL (0.0-0.6); Eosinophils % 3.1 %; Hematocrit 36.2 % (37.5-50.1); Hemoglobin 11.7 g/dL (12.9-16.9); Immature Granulocytes % 0.2 % (0-4); Lymphocytes # 4.4 K/mcL (0.6-4.6); Lymphocytes % 37.9 %; Mean Corpuscular HGB Conc 32.3 g/dL (31.6-35.5); Mean Corpuscular Hemoglobin 28.5 pg (28.0-33.3); Mean Corpuscular Volume 88.1 fL (83.0-100.0); Mean Platelet Volume 9.9 fL (9.4-12.4); Monocytes # 0.5 K/mcL (0.0-1.3); Monocytes % 4.4 %; Neutrophils # 6.2 K/mcL (1.6-8.9); Platelet Count 270 K/mcL (140-400); Red Blood Count 4.11 M/mcL (4.19-5.50); Red Cell Distribution Width 16.2 % (11.5-14.5); Segmented Neutrophils % 54.1 %
[2018-01-10] MEDS ORDERED: Ondansetron 4 MG/2 ML VIAL IVP ONE (19:20)
[2018-01-10 19:29] LABS: Troponin I < 0.03 ng/mL (< 0.04)
[2018-01-10 19:41] LABS: Alanine Aminotransferase 18 Units/L (7-52); Albumin 3.2 g/dL (3.5-5.7); Albumin/Globulin Ratio 0.9 (1.1-2.2); Alkaline Phosphatase 76 Units/L (34-104); Aspartate Amino Transferase 20 Units/L (13-39); BUN/Creatinine Ratio 22 (6-26); Bilirubin,Total 0.4 mg/dL (0.3-1.0); Blood Urea Nitrogen 17 mg/dL (8-23); Calcium 9.7 mg/dL (8.6-10.3); Carbon Dioxide 25 mEq/L (23-29); Chloride 103 mEq/L (98-107); Globulin 3.4 g/dL (2.4-3.5); Glucose 160 mg/dL (70-105); Osmolality,Calculated 291 (280-300); Potassium 4.1 mEq/L (3.5-5.1); Sodium 138 mEq/L (136-145); Total Protein 6.6 g/dL (6.4-8.9); eGFR For African Americans > 60 (> 60); eGFR For Non-African Americans > 60 (> 60)
[2018-01-10 19:51] LABS: Bilirubin,Urine Negative (Negative); Blood,Urine Negative (Negative); Clarity,Urine Clear (Clear); Color,Urine Yellow (Yellow); Glucose,Urine (UA) Normal (Normal); Ketones,Urine Negative (Negative); Leukocyte Esterase,Urine Small (Negative); Nitrite,Urine Positive (Negative); Protein,Urine Trace mg/dL (Neg-Trace); Specific Gravity,Urine 1.025 (1.010-1.025); Urobilinogen,Urine Normal (Normal)
[2018-01-10 20:02] LABS: Bacteria,Urine Many per hpf (None-Few)
[2018-01-10] MEDS ORDERED: Nitroglycerin 0.4 MG TAB.SUBL SL PRN (22:22)
[2018-01-10] MEDS ORDERED: Naloxone 0.4 MG/ML INJ IVP PRN (22:22)
[2018-01-10] MEDS ORDERED: Albuterol 2.5 MG/3 ML NEBULIZER IH PRN (22:22)
[2018-01-10] MEDS ORDERED: Ondansetron ODT 4 MG TAB.RAPDIS PO PRN (22:22)
[2018-01-10] MEDS ORDERED: amLODIPine 5 MG TABLET PO SCH (22:22)
[2018-01-10 22:30] LABS: INR 1.3
[2018-01-10 22:33] LABS: Activated Partial Thrombo Time 30.5 Seconds (26.0-36.0)
[2018-01-10] MEDS: tiZANidine 4 MG TABLET PO SCH (23:22)
[2018-01-10] MEDS: Famotidine 20 MG TABLET PO SCH (23:24)
[2018-01-11] MEDS: *HR* HYDROcodone/Acet 5/325 mg TABLET PO PRN ×2 (01:26→05:48)
[2018-01-11 05:38] LABS: Basophils % 0.3 %; Eosinophils # 0.1 K/mcL (0.0-0.6); Eosinophils % 0.9 %; Hematocrit 33.3 % (37.5-50.1); Hemoglobin 10.8 g/dL (12.9-16.9); Immature Granulocytes % 0.1 % (0-4); Lymphocytes # 4.9 K/mcL (0.6-4.6); Lymphocytes % 49.3 %; Mean Corpuscular HGB Conc 32.4 g/dL (31.6-35.5); Mean Corpuscular Hemoglobin 28.5 pg (28.0-33.3); Mean Corpuscular Volume 87.9 fL (83.0-100.0); Mean Platelet Volume 9.9 fL (9.4-12.4); Monocytes # 0.7 K/mcL (0.0-1.3); Monocytes % 6.6 %; Neutrophils # 4.3 K/mcL (1.6-8.9); Platelet Count 231 K/mcL (140-400); Red Blood Count 3.79 M/mcL (4.19-5.50); Red Cell Distribution Width 16.2 % (11.5-14.5); Segmented Neutrophils % 42.8 %
[2018-01-11 05:58] LABS: BUN/Creatinine Ratio 25 (6-26); Blood Urea Nitrogen 19 mg/dL (8-23); Calcium 9.5 mg/dL (8.6-10.3); Carbon Dioxide 26 mEq/L (23-29); Chloride 102 mEq/L (98-107); Glucose 95 mg/dL (70-105); Osmolality,Calculated 286 (280-300); Potassium 3.6 mEq/L (3.5-5.1); Sodium 137 mEq/L (136-145); eGFR For African Americans > 60 (> 60); eGFR For Non-African Americans > 60 (> 60)
[2018-01-11] MEDS ORDERED: Ascorbic Acid 500 MG TABLET PO SCH (06:30)
[2018-01-11] MEDS ORDERED: Aspirin Enteric Coated 81 MG Tablet PO SCH (09:00)
[2018-01-11] MEDS ORDERED: *HR* Warfarin 1 MG TABLET PO SCH ×2 (09:00→21:00)
[2018-01-11] MEDS: tiZANidine 4 MG TABLET PO SCH (10:22)
[2018-01-11] MEDS: Famotidine 20 MG TABLET PO SCH (10:22)
[2018-01-11 10:27] VITALS: BP 130/63
--- NOTE | 2018-01-11 12:41 | Internal Med History&Physical ---
Date of Encounter: 01/11/18 Time of Encounter: 12:05 Assessment and Plan (1) New onset seizure Current visit: Yes Status: Acute Uncertain diagnoses. Considering known previous significant CVA I felt it was reasonable to initiate Dilantin. He will follow with his neurologist within 1 week (2) UTI (urinary tract infection) Current visit: Yes Status: Acute We will give oral Cipro with lactobacillus. Qualifiers: Urinary tract infection type: site unspecified Hematuria presence: without hematuria Qualified Code(s): N39.0 - Urinary tract infection, site not specified Internal Medicine - H&P: HPI Chief complaint: Shaking, possible seizure Admitted From: Emergency Dept Plans for Post Hospital Care: Home History of present illness: Mr. Jackson is a 77 year old male who was brought to emergency room after family reported he developed "shaking" while at leisure at home. The initial episode lasted approximately 10 minutes. Seemed to lessen then but he did not speak. There was no loss of consciousness while he was shaking. The squad was called and another episode of shaking started after squad arrived. He was able to speak while having that episode of shaking. It is uncertain if there was loss of bowel or bladder control. He was evaluated in emergency room and admitted to [facility] floor for ongoing care needs. There have been no previous similar incidence of shaking. He denies fevers chills vomiting diarrhea or other infectious symptoms. There is been no recent head trauma. His neurologic history is significant for a stroke July 2017 leaving him with left arm and left leg weakness. He has not been ambulatory since the stroke. He feels back to his baseline now and wishes to be discharged home. Past Med Surg Social Fam HX - Past Medical History Medical history: CHF, COPD, coronary artery disease, CVA, hyperlipidemia, hypertension, myocardial infarction Psychiatric history: no psych history - Past Surgical History Surgical History: angioplasty/stent, coronary bypass (CABG), vascular surgery, other - Social History Smoking Status: Never smoker Smokeless Tobacco Status: No Alcohol use: none Drug use: none - Family History Sister Hx Family Cancer: Yes Brother Living Status: Still Living Hx Family Cardiac Disorders: Yes Hx Family Endocrine Disorder: Yes (DM) Mother Living Status: Hx Family Endocrine Disorder: Yes (DM) Internal Medicine - H&P: Meds Albuterol Sulfate [Albuterol Inhaler] 2 puff IH QID PRN 11/27/17 [History] Aspirin [Lo-Dose Aspirin EC] 81 mg PO DAILY 09/25/17 [History] Carvedilol [Coreg] 25 mg PO BID 09/25/17 [History] Clopidogrel [Plavix] 75 mg PO DAILY 09/25/17 [History] Docusate [Colace] 100 mg PO DAILY 09/25/17 [History] Nitroglycerin [Nitrostat] 0.4 mg SL DAILY PRN 09/25/17 [History] Ondansetron HCl [Zofran] 4 mg PO BID PRN 09/25/17 [History] Tizanidine HCl [Zanaflex] 2 mg PO BID 10/12/17 [History] Ranitidine HCl [Zantac] 150 mg PO BID 11/07/17 [History] Warfarin [Coumadin] 1 mg PO DAILY 11/07/17 [History] amLODIPine [Norvasc] 5 mg PO HS 11/07/17 [History] Albuterol Neb [Proventil Neb] 2.5 mg IH [id number] PRN inhsol 11/11/17 [Rx] Ascorbic Acid [Vitamin C] 500 mg PO DAILY@0630 tablet 11/11/17 [Rx] Ferrous Sulfate 325 mg PO DAILY@0630 tablet 11/11/17 [Rx] Tamsulosin [Flomax] 0.8 mg PO DAILY #60 11/24/17 [Rx] Buspirone HCl [Buspar] 5 mg PO BID 01/10/18 [History] 3 Allergy/AdvReac Type Severity Reaction Status Date / Time cinnamon Allergy Anaphylaxis Verified 11/10/17 16:51 Erythromycin Base Allergy Hives Verified 11/07/17 03:27 [From Erythrocin] ibuprofen [From Motrin] Allergy Nausea Verified 11/07/17 03:27 naproxen [From Aleve] Allergy See Verified 11/07/17 03:27 Comments Oxytetracycline Allergy See Verified 11/07/17 03:27 [From Terramycin] Comments [place] Allergy Anaphylaxis Verified 11/10/17 16:51 All Systems PM: A 10-system review of systems was performed and is negative for pertinent findings except as documented above in the HPI. Review of systems: Review of systems from his October [facility] hospitalization were reviewed and revised as below. Gen.: His weight records show significant fluctuation and appears unreliable. Cardiovascular: He has history of hypertension and known ASHD status post DC in 1993 and 2016. His most recent heart catheter was July 2017 at [facility] with no intervention done. He had CABG surgery February 2008. He has not had cardiac stents. He has known ASPVD with bilateral renal artery stents April 2008. He has had right external iliac, left common iliac, and right common iliac stents placed in March 2008 with additional stents placed July 2017 in the right leg. He had left carotid endarterectomy February 2009 and right carotid endarterectomy April 2001. His most recent carotid ultrasound was summer which showed a stable 40-59% stenosis in the right ICA per family report. He had pulmonary emboli including saddle embolus requiring hospitalization August 2017 at [facility]. Family is uncertain if embolectomy was performed. He has been placed on Coumadin. Respiratory: He smoked from age [age] up to 3 packs per day. He has a diagnosis of COPD and wears oxygen at home 22/05. GI: He was hospitalized [facility] October 2017 with colitis. He has GERD. He had a colon polyp with polypectomy remotely. Denies disorders of his liver gallbladder or exocrine pancreas. : He has BPH but no known disorders of his kidney bladder prostate otherwise Neurologic: He had a stroke July 2017 leaving him with left arm and left leg weakness. He has not been ambulatory since the stroke. He has not had seizures. Endocrine: There is no known diabetes or thyroid disease. He does have hyperlipidemia Hematology/oncology: Has anemia but no known internal malignancies Psychiatric: Has anxiety but no significant depression or other mental health issues [place] skeletal: He has DJD but no known gout or other bone joint or muscle disorders. - Constitutional Vitals: Temp Pulse Resp BP Pulse Ox 98.3 F 65 18 130/63 97 01/11/18 10:24 01/11/18 10:24 01/11/18 10:24 01/11/18 10:24 01/11/18 10:24 Exam: Gen.: He is a well-developed well-nourished male lying quietly in bed who appears in no acute distress HEENT: Head is atraumatic and normal cephalic. Eyes: EOMI. There is no scleral icterus. Mouth: Mucosa is moist. Neck: Supple and nontender. There is no thyromegaly or adenopathy noted. He has a well-healed right carotid endarterectomy scar. Heart: Regular without murmurs gallops or ectopics. Lungs: No wheezes or crackles are heard. Abdomen: Soft and nontender. No masses or guarding are noted. Extremities: There is no cyanosis edema or clubbing noted. Dorsalis pedis and posterior tibial pulses are trace to 1+ palpable bilaterally. Neurologic: Mental status: He is able to answer a few questions with appropriate answers. He is not very conversational otherwise. Cranial nerves: Smile is symmetric. Forehead wrinkles bilaterally. Tongue protrudes midline. EOMI. Motor: He has left hemiparesis from July 2017 stroke and does not move his left arm or leg spontaneously. His right arm and leg move appropriately. Cerebellar: Finger to nose is intact with the right hand. Skin: Warm and dry Internal Med - H&P Results - Labs CBC & Chem 7: 01/11/18 05:14 01/11/18 05:14 Labs: Short CBC 01/11/18 Range/Units 05:14 WBC 10.0 (4.3-11.1) K/mcL Hgb 10.8 L (12.9-16.9) g/dL Hct 33.3 L (37.5-50.1) % Plt Count 231 (140-400) K/mcL Neutrophils # 4.3 (1.6-8.9) K/mcL BMP 01/11/18 05:14 Sodium 137 Potassium 3.6 Chloride 102 Carbon Dioxide 26 BUN 19 Creatinine 0.77 Glucose 95 Calcium 9.5
--- NOTE | 2018-01-11 12:55 | Discharge Summary ---
Date of Encounter: 01/11/18 Time of Encounter: 12:05 - Discharge Diagnosis (1) New onset seizure Priority: Primary Status: Acute (2) UTI (urinary tract infection) Priority: Secondary Status: Acute Qualifiers: Urinary tract infection type: site unspecified Hematuria presence: without hematuria Qualified Code(s): N39.0 - Urinary tract infection, site not specified Hospital course: Mr. Jackson is a 77 year old male who was brought to emergency room after family reported he developed "shaking" while at leisure at home. The initial episode lasted approximately 10 minutes. Seemed to lessen then but he did not speak. There was no loss of consciousness while he was shaking. The squad was called and another episode of shaking started after squad arrived. He was able to speak while having that episode of shaking. It is uncertain if there was loss of bowel or bladder control. He was evaluated in emergency room and admitted to [facility] floor for ongoing care needs. Initial orders were written by the emergency room physician. I saw him on January 11 and performed a history physical and discharge. He had no further episodes of shaking or seizure-like activity. After discussion with the family was agreed he would start Dilantin and follow with his neurologist within 1 week for further evaluation. No further neurologic evaluation will be done at this time. He will be started on Cipro for UTI and continue for 3 days with probiotic. He will follow with his PCP within 1 week. - Time Spent with Patient Total time spent providing and/or coordinating discharge services: - Discharge Medications Prescriptions: Ciprofloxacin [Cipro] 500 mg PO BID #6 tablet Lactobacillus [Culturelle] 1 each PO BID #6 cap.sprink Phenytoin ER [Dilantin ER] 100 mg PO TID #21 capsule Home Medications: Albuterol Sulfate [Albuterol Inhaler] 2 puff IH QID PRN 09/25/17 [History] Aspirin [Lo-Dose Aspirin EC] 81 mg PO DAILY 09/25/17 [History] Carvedilol [Coreg] 25 mg PO BID 09/25/17 [History] Clopidogrel [Plavix] 75 mg PO DAILY 09/25/17 [History] Docusate [Colace] 100 mg PO DAILY 09/25/17 [History] Nitroglycerin [Nitrostat] 0.4 mg SL DAILY PRN 09/25/17 [History] Ondansetron HCl [Zofran] 4 mg PO BID PRN 09/25/17 [History] Tizanidine HCl [Zanaflex] 2 mg PO BID 10/12/17 [History] Ranitidine HCl [Zantac] 150 mg PO BID 11/07/17 [History] Warfarin [Coumadin] 1 mg PO DAILY 11/07/17 [History] amLODIPine [Norvasc] 5 mg PO HS 11/07/17 [History] Albuterol Neb [Proventil Neb] 2.5 mg IH [id number] PRN inhsol 11/11/17 [Rx] Ascorbic Acid [Vitamin C] 500 mg PO DAILY@0630 tablet 11/11/17 [Rx] Ferrous Sulfate 325 mg PO DAILY@0630 tablet 11/11/17 [Rx] Tamsulosin [Flomax] 0.8 mg PO DAILY #60 11/24/17 [Rx] Buspirone HCl [Buspar] 5 mg PO BID 01/10/18 [History] Ciprofloxacin [Cipro] 500 mg PO BID #6 tablet 01/11/18 [Rx] Lactobacillus [Culturelle] 1 each PO BID #6 cap.sprink 01/11/18 [Rx] Phenytoin ER [Dilantin ER] 100 mg PO TID #21 capsule 01/11/18 [Rx] Allergies/Adverse Reactions: 3 Allergy/AdvReac Type Severity Reaction Status Date / Time cinnamon Allergy Anaphylaxis Verified 11/10/17 16:51 Erythromycin Base Allergy Hives Verified 11/07/17 03:27 [From Erythrocin] ibuprofen [From Motrin] Allergy Nausea Verified 11/07/17 03:27 naproxen [From Aleve] Allergy See Verified 11/07/17 03:27 Comments Oxytetracycline Allergy See Verified 11/07/17 03:27 [From Terramycin] Comments [place] Allergy Anaphylaxis Verified 11/10/17 16:51 Date of admission: 01/10/18 21:44 Primary care physician: Sofi Johansen CNP Consults: 01/10/18 22:50 Consult to Ux Researcher [CONS] Routine Reason for SW Consult: Patient receives palliative care through [facility]. - Constitutional Vitals: Temp Pulse Resp BP Pulse Ox 98.3 F 65 14 130/63 94 01/11/18 10:24 01/11/18 10:24 01/11/18 11:10 01/11/18 10:24 01/11/18 11:10 - Patient Status Disposition: Home, Self-Care Functional capacity at discharge: bed bound Overall status at discharge: patient is progressing back to baseline - Discharge Instructions Follow Up With: Sofi Johansen CNP [Primary Care Provider] - 1 week Additional Instructions: Your blood pressure was elevated today so please follow up with your primary care provider for a recheck upon discharge - Diet and Activity Activity: resume usual activities as tolerated Diet: advance to your usual diet
--- NOTE | 2018-01-11 14:16 | Physician Discharge Referral ---
Home Health/Hosp Referral Info Transfer to: Home Health Attending Provider: Ren Provider in Charge Post Discharge: PCP (Sofi Johansen CNP) - Diagnosis (1) New onset seizure Priority: Primary Status: Acute (2) UTI (urinary tract infection) Priority: Secondary Status: Acute - Respiratory Orders Smoking Cessation: Smoking cessation has been advised. For more information, call the [place] Tobacco Quit Line at 0-086-WASR-NOW. - Diet/Nutrition Diet/Nutrition Orders: Regular - Activity Activity Orders: Bedrest - Services Needed Following services are medically necessary services: Nursing, Home Health Aide, Physical Therapy, Occupational Therapy - Transfer Medications Prescriptions: Ciprofloxacin [Cipro] 500 mg PO BID #6 tablet Lactobacillus [Culturelle] 1 each PO BID #6 cap.sprink Phenytoin ER [Dilantin ER] 100 mg PO TID #21 capsule Home Medications: Albuterol Sulfate [Albuterol Inhaler] 2 puff IH QID PRN 09/25/17 [History] Aspirin [Lo-Dose Aspirin EC] 81 mg PO DAILY 09/25/17 [History] Carvedilol [Coreg] 25 mg PO BID 09/25/17 [History] Clopidogrel [Plavix] 75 mg PO DAILY 09/25/17 [History] Docusate [Colace] 100 mg PO DAILY 09/25/17 [History] Nitroglycerin [Nitrostat] 0.4 mg SL DAILY PRN 09/25/17 [History] Ondansetron HCl [Zofran] 4 mg PO BID PRN 09/25/17 [History] Tizanidine HCl [Zanaflex] 2 mg PO BID 10/12/17 [History] Ranitidine HCl [Zantac] 150 mg PO BID 11/07/17 [History] Warfarin [Coumadin] 1 mg PO DAILY 11/07/17 [History] amLODIPine [Norvasc] 5 mg PO HS 11/07/17 [History] Albuterol Neb [Proventil Neb] 2.5 mg IH [id number] PRN inhsol 11/11/17 [Rx] Ascorbic Acid [Vitamin C] 500 mg PO DAILY@0630 tablet 11/11/17 [Rx] Ferrous Sulfate 325 mg PO DAILY@0630 tablet 11/11/17 [Rx] Tamsulosin [Flomax] 0.8 mg PO DAILY #60 11/24/17 [Rx] Buspirone HCl [Buspar] 5 mg PO BID 01/10/18 [History] Ciprofloxacin [Cipro] 500 mg PO BID #6 tablet 01/11/18 [Rx] Lactobacillus [Culturelle] 1 each PO BID #6 cap.sprink 01/11/18 [Rx] Phenytoin ER [Dilantin ER] 100 mg PO TID #21 capsule 01/11/18 [Rx] Allergies/Adverse Reactions: 3 Allergy/AdvReac Type Severity Reaction Status Date / Time cinnamon Allergy Anaphylaxis Verified 11/10/17 16:51 Erythromycin Base Allergy Hives Verified 11/07/17 03:27 [From Erythrocin] ibuprofen [From Motrin] Allergy Nausea Verified 11/07/17 03:27 naproxen [From Aleve] Allergy See Verified 11/07/17 03:27 Comments Oxytetracycline Allergy See Verified 11/07/17 03:27 [From Terramycin] Comments [place] Allergy Anaphylaxis Verified 11/10/17 16:51 Certification: Further, I certify that my clinical findings support that this patient is homebound (i.e. absences from home require considerable and taxing effort and are for medical reasons or congregation services or infrequently or short duration when for other reasons) because: Homebound Reason: Leaving home requires considerable and taxing effort due to condition (CVA with left hemiparesis) Attestation: My signature below is to certify that this patient is under my care and that I, or nurse practitioner, or a physician's assistant chief engineer working with me, has a face-to -face encounter with this patient.
--- NOTE | 2018-01-16 08:53 | Electrocardiograph Report ---
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
== END 2018-01-11 15:35 | disposition home or self-care (01) ==
LOC: INPPIK 18:37 → EMEROOPIK 18:37 → INPPIK 22:01
PROVIDERS: ADMIT Internal Medicine; ATTEND Internal Medicine